=== PATIENT | female | born 1945 | race Caucasian/White ===

== ENCOUNTER → 2021-04-08 10:09 | Outpatient (CLI) | payer OTHER, SELFPAY ==
--- NOTE | 2021-04-08 | DI.RAD.S_ITS ---
PROCEDURE: FL JOINT INJECTION LARGE RT INDICATIONS: right hip injection COMPARISON: None. TECHNIQUE: The indications, alternatives, benefits, risks, and complications of the procedure were explained to the patient. Written informed consent was obtained and placed in the chart. The patient was placed in an appropriate position on the fluoroscopy table, and a site was chosen for percutaneous access under fluoroscopic guidance. The site was prepped and draped in a sterile fashion. Local anesthetic was administered using a 1% lidocaine solution. A hypodermic or spinal needle was then used to access the symptomatic joint. Intra-articular location of the needle tip was confirmed by injecting a small amount of contrast, followed by steroid administration. The needle was then withdrawn, and a bandage applied to the puncture site. FINDINGS: Joint injected: Right Medications injected: 1 mL of 40 mg/mL Kenalog and 2 mL 0.5% Ropivacaine mixture. Patient's pain before injection: 4 out of 10. Patient's pain after injection: 0-1 out of 10. Complications: None. IMPRESSION: Successful fluoroscopically guided administration of steroid and anaesthetic solution into the right hip joint. Dictated by: Cris Araiza MD, PhD on 04/08/2021 at 15:27 Approved by: Cris Araiza MD, PhD on 04/08/2021 at 15:29
== END ==
PROVIDERS: PCP Internal Medicine; Referring Provider Orthopaedic Surgery; Visit Provider Orthopaedic Surgery
DX: M25.551 Pain in right hip (principal)
CPT/HCPCS: 20610; 77002

== ENCOUNTER → 2022-01-05 11:09 | Outpatient (CLI) | payer OTHER, SELFPAY ==
--- NOTE | 2022-01-05 | DI.RAD.S_ITS ---
PROCEDURE: FL JOINT INJECTION LARGE RT INDICATIONS: ACUTE RIGHT HIP PAIN/OSTEOARTHRITIS RIGHT HIP COMPARISON: [facility], , FL JOINT INJECTION LARGE RT, 04/08/2021, 10:33. TECHNIQUE: The indications, alternatives, benefits, risks, and complications of the procedure were explained to the patient. Written informed consent was obtained and placed in the chart. The patient was placed in an appropriate position on the fluoroscopy table, and a site was chosen for percutaneous access under fluoroscopic guidance. The site was prepped and draped in a sterile fashion. Local anesthetic was administered using a 1% lidocaine solution. A hypodermic or spinal needle was then used to attempt access of the symptomatic joint. A small amount of contrast was injected, followed by steroid administration. The needle was then withdrawn, and a bandage applied to the puncture site. FINDINGS: Joint injected: Right-side Medications injected: 4 mL of 40 mg/mL Kenalog and 0.5% Ropivacaine mixture. Patient's pain before injection: 2 out of 10 at rest, 7/10 with movement. Patient's pain after injection: 1 out of 10. Complications: Suspected injection of the iliopsoas bursa or tendon. IMPRESSION: Fluoroscopically guided administration of steroid and anaesthetic solution. The steroid and anaesthetic is suspected to have been adminstered into the iliopsoas bursa or tendon, which was not identified intra-procedurally. In some patients this bursa communicates with the hip joint. Pain relief may still be possible with an injection in this area, but if the patient continues to experience pain after this injection a repeat intra-articular injection could be attempted. Multiple call report attempts were made beginning at 1238 hours on 01/05/2022. Dictated by: Andre Bond M.D. on 01/05/2022 at 12:25 Approved by: Andre Bond M.D. on 01/05/2022 at 14:35
== END ==
PROVIDERS: PCP Internal Medicine; Referring Provider Orthopaedic Surgery; Visit Provider Orthopaedic Surgery
DX: M16.11 Unilateral primary osteoarthritis, right hip (principal); M25.551 Pain in right hip
CPT/HCPCS: 20610